=== PATIENT | male | born 1960 | race Caucasian/White ===

== ENCOUNTER 2017-03-12 13:10 | Emergency (ER) | payer MEDICARE ==
[2017-03-12 13:12] VITALS: BMI 19.3
[2017-03-12 13:24] VITALS: PULSE 66; RESP 18; TEMP 97.8; O2SAT 99
--- NOTE | 2017-03-12 13:26 | ED PDOC ---
HPI: Dental Pain/Injury Time Seen by Provider: 03/12/17 13:25 Chief Complaint (Nursing): Dental Pain Chief Complaint (Provider): tooth pain History Per: Patient Additional Complaint(s): 56-year-old male with no past medical history presents to emergency department requesting a list of local dentists for follow-up. He states that he had an appt earlier today at a dentist but his insurance was not current so he could not be seen. He presents today requesting a list of local dentists so that he can follow up for further evaluation. Patient states he has 2 front incisor teeth in left upper mandible that have been loose for several months and need to be pulled. He denies acute pain, denies fever or chills. Patient is tolerating liquids and solids. Patient is also asking for a cup of coffee and a sandwich. Past Medical History Reviewed: Historical Data, Nursing Documentation, Vital Signs Vital Signs: Last Vital Signs Temp 97.8 F 03/12/17 13:22 Pulse 66 03/12/17 13:22 Resp 18 03/12/17 13:22 BP Pulse Ox 99 03/12/17 13:22 - Medical History PMH: Schizophrenia, Sexually Transmitted Disease - Family History Family History: States: No Known Family Hx - Social History Current smoker - smoking cessation education provided: Yes Alcohol: None Drugs: Denies - Home Medications Home Medications: Ambulatory Orders Medication Instructions Recorded Risperdal 1 mg PO DAILY 08/12/14 Amoxicillin 875 mg PO BID #14 tab 03/12/17 Ibuprofen [Motrin] 600 mg PO Q6 PRN #15 tab 03/12/17 - Allergies Allergies/Adverse Reactions: Allergies Allergy/AdvReac Type Severity Reaction Status Date / Time No Known Allergies Allergy Unverified 08/12/14 15:35 Review of Systems ROS Statement: Except As Marked, All Systems Reviewed And Found Negative Constitutional: Negative for: Fever ENT: Positive for: Other (dental pain, needed referral to dentist) Physical Exam - Reviewed Nursing Documentation Reviewed: Yes Vital Signs Reviewed: Yes - Physical Exam Appears: Positive for: Well, Non-toxic, No Acute Distress Eye Exam: Positive for: Normal appearance, EOMI, PERRL ENT: Positive for: Other (Overall poor dentition, multiple dental caries, multiple missing teeth, there are 2 left upper incisors that are loose with no dental abscess noted, airway patent, uvula midline, no facial swelling) Cardiovascular/Chest: Positive for: Regular Rate, Rhythm Respiratory: Positive for: Normal Breath Sounds Neurologic/Psych: Positive for: Alert, Oriented - ECG O2 Sat by Pulse Oximetry: 99 Pulse Ox Interpretation: Normal Medical Decision Making Medical Decision Making: Impression: dental caries Plan: Patient was provided with referral to local dental clinics and was given prescription for amoxicillin and Motrin. He was instructed to follow up MARYCHUY with dentist. Disposition - Clinical Impression Clinical Impression: Dental caries - Patient ED Disposition Is Patient to be Admitted: No Counseled Patient/Family Regarding: Diagnosis, Need For Followup, Rx Given, Smoking Cessation - Disposition Referrals: [facility] [Outside] Disposition: Routine/Home Disposition Time: 13:36 Condition: STABLE Additional Instructions: Follow up MARYCHUY with dentist. Prescriptions: Amoxicillin 875 mg PO BID #14 tab Ibuprofen [Motrin] 600 mg PO Q6 PRN #15 tab PRN Reason: Pain, Moderate (4-7) Instructions: Dental Caries (ED)
== END 2017-03-12 14:17 | disposition home or self-care (01) ==
LOC: H.ER 13:10
DX: K02.9 Dental caries, unspecified (principal); F17.200 Nicotine dependence, unspecified, uncomplicated; Z86.59 Personal history of other mental and behavioral disorders

== ENCOUNTER 2017-07-06 00:29 | Observation (INO) | payer MEDICARE ==
[2017-07-06 00:29] VITALS: BMI 19.3
[2017-07-06 00:38] VITALS: BP 115/74; PULSE 89; RESP 18; TEMP 98.8; O2SAT 99
[2017-07-06 01:47] LABS: BASO # 0.1 K/uL (0.0-0.2); BASO % 0.5 % (0.0-2.0); EOS # 0.1 K/uL (0.0-0.7); EOS % 1.2 % (0.0-4.0); HEMOGLOBIN 13.3 g/dL (12.0-18.0); LYMPH # 2.3 K/uL (1.0-4.3); LYMPH % 18.5 % (20.0-40.0); MEAN CELL VOLUME 90.4 fl (80.0-94.0); MEAN CORPUSCULAR HEMOGLOBIN 29.6 pg (27.0-31.0); MEAN CORPUSCULAR HGB CONC 32.8 g/dL (33.0-37.0); MEAN PLATELET VOLUME 8.5 fl (7.2-11.7); MONO # 0.7 K/uL (0.0-0.8); MONO % 5.5 % (0.0-10.0); NEUT # 9.2 K/uL (1.8-7.0); NEUT % 74.3 % (50.0-75.0); RBC 4.5 Mil/uL (4.40-5.90); RED CELL DISTRIBUTION WIDTH 14.8 % (11.5-14.5); WHITE BLOOD COUNT 12.3 K/uL (4.8-10.8)
[2017-07-06 02:10] LABS: ALB/GLOB RATIO 1.5 (1.0-2.1); ALBUMIN 4.4 g/dL (3.5-5.0); ALT/SGPT 39 U/L (21-72); AST/SGOT 54 U/L (17-59); BLOOD UREA NITROGEN 16 mg/dl (9-20); GFR AFRICAN-AMERICAN > 60; GFR NON-AFRICAN AMERICAN > 60
--- NOTE | 2017-07-06 02:15 | ED PDOC ---
HPI: SOB/CHF/COPD Time Seen by Provider: 07/06/17 00:37 Chief Complaint (Nursing): Alcohol Ingestion History Per: EMS Additional Complaint(s): Pt. found outside intoxicated. Pt. admits to drinking alcohol. Offers no complaints at this time. Past Medical History Reviewed: Historical Data, Nursing Documentation, Vital Signs Vital Signs: Last Vital Signs Temp 98.8 F 07/06/17 00:34 Pulse 89 07/06/17 00:34 Resp 18 07/06/17 00:34 BP 115/74 07/06/17 00:34 Pulse Ox 99 07/06/17 02:15 - Medical History PMH: Schizophrenia, Sexually Transmitted Disease Denies: Diabetes, Hepatitis, HIV, HTN, Seizures - Family History Family History: States: No Known Family Hx - Immunization History Hx Tetanus Toxoid Vaccination: No Hx Influenza Vaccination: No Hx Pneumococcal Vaccination: No - Home Medications Home Medications: Ambulatory Orders Medication Instructions Recorded Risperdal 1 mg PO DAILY 08/12/14 Amoxicillin 875 mg PO BID #14 tab 03/12/17 Ibuprofen [Motrin] 600 mg PO Q6 PRN #15 tab 03/12/17 - Allergies Allergies/Adverse Reactions: Allergies Allergy/AdvReac Type Severity Reaction Status Date / Time No Known Allergies Allergy Unverified 08/12/14 15:35 Review of Systems ROS Statement: Except As Marked, All Systems Reviewed And Found Negative Physical Exam - Reviewed Nursing Documentation Reviewed: Yes Vital Signs Reviewed: Yes - Physical Exam Appears: Positive for: Well, Non-toxic, No Acute Distress Head Exam: Negative for: ATRAUMATIC (superficial abrasion noted to L zygomatic arch without swelling or bony step-off), NORMAL INSPECTION, NORMOCEPHALIC Skin: Positive for: Normal Color, Warm. Negative for: Rash Eye Exam: Positive for: EOMI, Normal appearance, PERRL ENT: Positive for: Normal ENT Inspection, TM Is/Are (no hemotympanum b/l). Negative for: Pharyngeal Erythema, Tonsillar Exudate, Tonsillar Swelling Neck: Positive for: Normal, Painless ROM Cardiovascular/Chest: Positive for: Regular Rate, Rhythm Respiratory: Positive for: CNT, Normal Breath Sounds Gastrointestinal/Abdominal: Positive for: Normal Exam, Bowel Sounds, Soft. Negative for: Tenderness Back: Positive for: Normal Inspection Extremity: Positive for: Normal ROM Neurologic/Psych: Positive for: Alert, Oriented, Gait (unsteady), Other (AOB; slurred speech). Negative for: Aphasia, Facial Droop - Laboratory Results Result Diagrams: 07/06/17 01:40 07/06/17 01:40 - ECG O2 Sat by Pulse Oximetry: 99 ED OBSERVATION Date of observation admission: 07/06/17 Time of observation admission: 01:15 - Observation admission statement Patient is being placed in observation because:: fall, etoh - Progress Note Progress Note: 07/06/17 02:37 Sleeping comfortably. Easily arousable. 07/06/17 05:30 AOx3. Gait steady unassisted. No slurred speech. No nasal bone tenderness. Denies nasal pain. Disposition - Clinical Impression Clinical Impression: Alcohol intoxication, Head injury - Patient ED Disposition Is Patient to be Admitted: No - Disposition Disposition: Routine/Home Disposition Time: 05:38 Condition: STABLE
--- NOTE | 2017-07-06 04:20 | CT ---
EXAM: CT Head Without Intravenous Contrast CLINICAL HISTORY: 56 years old, male; Injury or trauma; Fall; Additional info: Head injury TECHNIQUE: Axial computed tomography images of the head/brain without intravenous contrast. All CT scans at this facility use one or more dose reduction techniques, viz.: automated exposure control; ma/kV adjustment per patient size (including targeted exams where dose is matched to indication; i.e. head); or iterative reconstruction technique. Coronal and sagittal reformatted images were created and reviewed. COMPARISON: No relevant prior studies available. FINDINGS: Brain: No intracranial hemorrhage. No mass. Small parenchymal calcification. No edema. Ventricles: No hydrocephalus. Bones/joints: No calvarial fracture. Mastoid air cells: No mastoid effusion. IMPRESSION: 1. No intracranial hemorrhage. 2. See facial bone CT report for additional details.
--- NOTE | 2017-07-06 04:25 | CT ---
EXAM: CT Cervical Spine Without Intravenous Contrast CLINICAL HISTORY: 56 years old, male; Injury or trauma; Fall; Initial encounter; Blunt trauma TECHNIQUE: Axial computed tomography images of the cervical spine without intravenous contrast. All CT scans at this facility use one or more dose reduction techniques, viz.: automated exposure control; ma/kV adjustment per patient size (including targeted exams where dose is matched to indication; i.e. head); or iterative reconstruction technique. Coronal and sagittal reformatted images were created and reviewed. COMPARISON: No relevant prior studies available. FINDINGS: Limitations: Motion artifact - mild. Vertebrae: No acute fracture. Discs/spinal canal/neural foramina: No significant spinal canal stenosis. Soft tissues: Unremarkable. Lung apices: Unremarkable as visualized. IMPRESSION: 1. No definite fracture.
--- NOTE | 2017-07-06 04:36 | CT ---
EXAM: CT Maxillofacial Without Intravenous Contrast CLINICAL HISTORY: 56 years old, male; Injury or trauma; Fall; Initial encounter; Blunt trauma (contusions or hematomas); Forehead TECHNIQUE: Axial computed tomography images of the face without intravenous contrast. All CT scans at this facility use one or more dose reduction techniques, viz.: automated exposure control; ma/kV adjustment per patient size (including targeted exams where dose is matched to indication; i.e. head); or iterative reconstruction technique. Coronal and sagittal reformatted images were created and reviewed. COMPARISON: No relevant prior studies available. FINDINGS: Bones/joints: Nondisplaced fracture RIGHT nasal bone, age indeterminate. Soft tissues: Mild frontal soft tissue swelling. Orbits: Unremarkable. Sinuses: Scattered minimal mucosal thickening. No air-fluid levels. Dental: Dental caries. IMPRESSION: 1. Nondisplaced fracture RIGHT nasal bone, age indeterminate. 2. Incidental/non-acute findings are described above.
--- NOTE | 2017-07-06 12:29 | RAD ---
HISTORY: fall COMPARISON: No prior. FINDINGS: LUNGS: Lungs appear slightly overinflated; rule out chronic changes of emphysema or COPD. There may be some mild atelectasis or scarring changes in the left mid lung field. PLEURA: No significant pleural effusion identified, no pneumothorax apparent. CARDIOVASCULAR: Heart size within range of normal OSSEOUS STRUCTURES: There is mild chronic appearing left lateral wedge deformity of the T7 vertebral body segment with the localized dextroscoliosis. VISUALIZED UPPER ABDOMEN: Normal. OTHER FINDINGS: None. IMPRESSION: Mild hyperinflation; rule out chronic changes of emphysema or COPD. Suspect minor atelectasis and or scarring left mid lung field
== END 2017-07-06 05:42 | disposition home or self-care (01) ==
LOC: H.ER 00:29 → H.EROBSV 01:15
PROVIDERS: ADMIT Emergency Medicine; ATTEND Emergency Medicine
DX: F10.129 Alcohol abuse with intoxication, unspecified (principal); Y90.6 Blood alcohol level of 120-199 mg/100 ml; S00.81XA Abrasion of other part of head, initial encounter; W19.XXXA Unspecified fall, initial encounter; Y93.9 Activity, unspecified; Y92.9 Unspecified place or not applicable; F20.9 Schizophrenia, unspecified
CPT/HCPCS: 36415; 70450; 70486; 71010; 72125; 80053; 82948; 85025; 99282; G0378; G0480

== ENCOUNTER 2018-10-21 01:42 | Emergency (ER) | payer MEDICAID, MEDICARE ==
[2018-10-21 01:56] VITALS: BMI 24.4
--- NOTE | 2018-10-21 02:36 | ED PDOC ---
HPI: Psych/Substance Abuse Time Seen by Provider: 10/21/18 01:55 Chief Complaint (Nursing): Psychiatric Evaluation Chief Complaint (Provider): Psychiatric Evaluation ED Caveat: Acuity of Condition History Per: Patient History/Exam Limitations: clinical condition Associated Symptoms: Agitation Additional Complaint(s): 58 y/o male with history of Schizoaffective disorder was brought to the ED for agitation. Patient is being uncooperative and is unable to provide history. Patient was brought to the ED by [employer]. Past Medical History Reviewed: Historical Data, Nursing Documentation, Vital Signs - Medical History PMH: Schizophrenia, Sexually Transmitted Disease Denies: Diabetes, Hepatitis, HIV, HTN, Chronic Kidney Disease, Seizures - Family History Family History: States: Unknown Family Hx - Immunization History Hx Tetanus Toxoid Vaccination: No Hx Influenza Vaccination: No Hx Pneumococcal Vaccination: No - Home Medications Home Medications: Ambulatory Orders Medication Instructions Recorded RX: Unobtainable 03/17/18 - Allergies Allergies/Adverse Reactions: Allergies Allergy/AdvReac Type Severity Reaction Status Date / Time No Known Allergies Allergy Unverified 10/21/18 02:09 Review of Systems Review Of Systems: ROS cannot be obtained secondary to pt's inabilty to answer questions. Physical Exam - Physical Exam Appears: Positive for: Non-toxic, No Acute Distress Head Exam: Positive for: ATRAUMATIC, NORMOCEPHALIC Skin: Positive for: Normal Color, Warm, Dry Eye Exam: Positive for: EOMI, Normal appearance, PERRL Neck: Positive for: Normal, Painless ROM, Supple Cardiovascular/Chest: Positive for: Regular Rate, Rhythm. Negative for: Murmur Respiratory: Positive for: Normal Breath Sounds. Negative for: Respiratory Distress Gastrointestinal/Abdominal: Positive for: Normal Exam, Soft. Negative for: Tenderness Extremity: Positive for: Normal ROM. Negative for: Pedal Edema, Deformity Neurologic/Psych: Positive for: Alert, Oriented, Mood/Affect (Agitated). Negative for: Motor/Sensory Deficits - Laboratory Results Result Diagrams: 10/21/18 02:28 10/21/18 02:28 Medical Decision Making Medical Decision Making: Time: 01:57 Initial Impression: 58 y/o male with acute agitation in setting of Sc hizoaffective disorder Initial Plan: * Alcohol serum * CMP * Drug screen * Crisis eval * CBC w/ diff * Ativan * Haldol * 1:1 Observation * 4 point restraint 07:00 Patient care endorsed from provider to Dr. Burks pending crisis evaluation. Scribe Attestation: Documented by Narayan Manuel acting as a scribe for Juan Wilson MD. Provider Scribe Attestation: All medical record entries made by the Scribe were at my direction and personally dictated by me. I have reviewed the chart and agree that the record accurately reflects my personal performance of the history, physical exam, medical decision making, and the department course for this patient. I have also personally directed, reviewed, and agree with the discharge instructions and disposition. Disposition - Clinical Impression Clinical Impression: Alcohol intoxication, Schizoaffective disorder - Patient ED Disposition Is Patient to be Admitted: Transfer of Care - Disposition Disposition: Transfer of Care Disposition Time: 07:00 Condition: FAIR Forms: [employer] ([place]ish) Patient Signed Over To: Jason Burks (pending crisis eval)
[2018-10-21 02:41] LABS: BASO % 0.6 % (0.0-2.0); EOS # 0.1 K/uL (0.0-0.7); EOS % 2.1 % (0.0-4.0); HEMOGLOBIN 13.5 g/dL (12.0-18.0); LYMPH # 2.8 K/uL (1.0-4.3); LYMPH % 39.9 % (20.0-40.0); MEAN CELL VOLUME 94.1 fl (80.0-94.0); MEAN CORPUSCULAR HEMOGLOBIN 30.5 pg (27.0-31.0); MEAN CORPUSCULAR HGB CONC 32.4 g/dL (33.0-37.0); MEAN PLATELET VOLUME 8.7 fl (7.2-11.7); MONO # 0.5 K/uL (0.0-0.8); MONO % 6.6 % (0.0-10.0); NEUT # 3.5 K/uL (1.8-7.0); NEUT % 50.8 % (50.0-75.0); NRBC % 0.2 % (0.0-0.0); RBC 4.42 Mil/uL (4.40-5.90); RED CELL DISTRIBUTION WIDTH 14.1 % (11.5-14.5); WHITE BLOOD COUNT 6.9 K/uL (4.8-10.8)
[2018-10-21 02:47] LABS: ALB/GLOB RATIO 1.4 (1.0-2.1); ALBUMIN 4.4 g/dL (3.5-5.0); ALT/SGPT 34 U/L (21-72); AST/SGOT 38 U/L (17-59); BLOOD UREA NITROGEN 12 mg/dl (9-20); CALCIUM 9.1 mg/dL (8.4-10.2); GFR NON-AFRICAN AMERICAN > 60
--- NOTE | 2018-10-21 07:17 | ED PDOC ---
- Laboratory Results Result Diagrams: 10/21/18 02:28 10/21/18 02:28 - ECG O2 Sat by Pulse Oximetry: 99 (RA) Pulse Ox Interpretation: Normal - Progress ED Course And Treament: 1003: Stable. Crisis saw pt. Does not meet criteria for admit. Fu outpt. AAOx3. Ambulated with no issues. Medical Decision Making Medical Decision Makin Patient endorsed by Dr. Rivero to me, pending crisis evaluation. Scribe Attestation: Documented by Sarah Taylor, acting as a scribe for Jason Burks MD. Provider Scribe Attestation: All medical record entries made by the Scribe were at my direction and personally dictated by me. I have reviewed the chart and agree that the record accurately reflects my personal performance of the history, physical exam, medical decision making, and the department course for this patient. I have also personally directed, reviewed, and agree with the discharge instructions and disposition. Disposition - Clinical Impression Clinical Impression: Alcohol intoxication, Schizoaffective disorder - POA Present On Arrival: None - Disposition Referrals: [facility] [Outside] - 10/22/18 Disposition: Routine/Home Disposition Time: 10:04 Condition: STABLE Additional Instructions: Return if not better in 3 days. Instructions: Schizoaffective Disorder
[2018-10-21 11:15] VITALS: BP 125/80; PULSE 75; RESP 18; TEMP 97.8; O2SAT 100
== END 2018-10-21 11:15 | disposition home or self-care (01) ==
LOC: H.ER 01:42
DX: F10.129 Alcohol abuse with intoxication, unspecified (principal); Z86.59 Personal history of other mental and behavioral disorders; Z00.8 Encounter for other general examination; Y90.6 Blood alcohol level of 120-199 mg/100 ml
CPT/HCPCS: 80053; 82948; 85025; 96372; 99285; G0480; J1630; J2060